=== PATIENT | male | born 1980 | race Caucasian/White ===

== ENCOUNTER 2025-01-10 04:11 | Emergency (ER) | payer OTHER, SELFPAY ==
[2025-01-10 04:15] VITALS: BP 142/90
[2025-01-10] MEDS: NSS 1000 IV (04:44)
[2025-01-10] MEDS: ZOFRAN 4 MG IV (04:48)
[2025-01-10] MEDS: TORADOL 15 MG IV (04:48)
[2025-01-10 04:52] VITALS: BP 115/83
[2025-01-10 04:53] VITALS: BMI 39.9
[2025-01-10 05:00] VITALS: BP 117/81
--- NOTE | 2025-01-10 05:13 | ED.GENMED ---
History of Present Illness
<Todd Medina Jr., PA-C - Last Filed: 01/11/25 21:08>
General
Chief Complaint: Abdominal Symptoms
Source: patient
Exam Limitations: none
Time Seen by Provider: 01/10/25 04:26
Nursing documentation reviewed up to this point in time: agreed with
History of Present Illness
History of Present Illness:
44-year-old male past medical history of hypertension GERD presenting to the emergency department today with concerns of lower abdominal discomforts and loose bowel movements as well as low-grade temperature over the past 4 days. Pain has been
progressing. Denies any blood in the stool denies any vomiting has had nausea. No significant upper respiratory symptoms.
Past History
<Todd Medina Jr., PA-C - Last Filed: 01/11/25 21:08>
Past History
ED Past Medical History: GERD and Other (Mildly hearing impaired)
ED Past Surgical History: Other (Ear surgeries)
Social History
Tobacco: Non-smoker
Alcohol: None
Drug: None
Personal: Single
Living: alone
Family History
Family History: Other (Noncontributory)
Review of Systems
<Todd Medina Jr., PA-C - Last Filed: 01/11/25 21:08>
Review of Systems
Allergies reviewed?: Yes
All Other Systems: ROS reviewed and negative except as documented in HPI and ROS
Phy Exam
<Todd Medina Jr., PA-C - Last Filed: 01/11/25 21:08>
Physical Exam
Physical Exam:
GENERAL: Alert , in no apparent distress
EYE: pupils equal and reactive
NECK: Supple, no significant adenopathy.
ENT: o/p clr, mmm.
CARDIAC: Regular rate and rhythm .
LUNGS: Clear breath sounds bilaterally, no acute respiratory distress, no wheezes/rales/rhonchi
ABDOMEN: Vague lower abdominal pain at the suprapubic region left lower quadrant and right lower quadrant no upper abdominal pain
NEUROLOGICAL: Alert and oriented, no focal neuro deficits
SKIN: Warm and dry, skin intact.
MUSCULOSKELETAL: No edema, well perfused.
PSYCH: Normal and appropriate interaction.
Course
<Todd Medina Jr., PA-C - Last Filed: 01/11/25 21:08>
Orders/Labs/Results
Orders:
Orders
01/10/25 04:23
IV Insert/Care/Rem.- Treatment PRN
Straight cath- Treatment ONCE
01/10/25 04:35
Complete Blood Count/With Diff Urgent
Comprehensive Metabolic Panel Urgent
Lipase Urgent
Manual Differential Urgent
Urinalysis Reflex To Culture Urgent
Date Specimen was Collected: 01/10/25
Time Specimen was Collected: 04:23
Urine Microscopic Reflex Cult Urgent
01/10/25 04:40
CT Abd/Pel (IV only)-DH only Urgent
Comment:
Reason For Exam: lower abd pain
0.9% Sodium Chloride 1000 ml [Nss] 1,000 ml IV BOLUS
Ketorolac [Toradol] 15 mg IV NOW STA
Ondansetron Injectable [Zofran] 4 mg IV NOW STA
01/10/25 07:27
Giardia/Cryptosporidium Ag Urgent
[facility] Source: ST
Specimen Description:
Date Specimen was Collected: 01/10/25
Time Specimen was Collected: 07:25
Comment: GCA added on by Aspen sIidro PA-C at 0735 on 01/10/2025
STOOL [C difficile Antigen & Toxins] Urgent
[facility] Source: Feces/Stool
Specimen Description:
Date Specimen was Collected: 01/10/25
Time Specimen was Collected: 07:25
Stool Culture Urgent
[facility] Source: Feces/Stool
Specimen Description:
Date Specimen was Collected: 01/10/25
Time Specimen was Collected: 07:25
Stool For WBC Urgent
[facility] Source: ST
Specimen Description:
Date Specimen was Collected: 01/10/25
Time Specimen was Collected: 07:25
Comment: ST WBC added on by Aspen Isidro PA-C at 0735 on 01/10/2025
Yersinia Culture-Stool Urgent
[facility] Source: ST
Specimen Description:
Date Specimen was Collected: 01/10/25
Time Specimen was Collected: 07:25
Comment: Yersinia Culture added on by Aspen Isidro PA-C at 0735 on 01/10/2025
01/10/25 07:35
Add On - Microbiology Urgent
Tests Added?: feces o&p crypt/giardia, fecal wbc, yersinia
01/10/25 07:46
LevoFLOXacin [Levaquin] 750 mg PO NOW STA
MetroNIDAZOLE [Flagyl] 500 mg PO NOW STA
01/10/25 08:08
Blood Culture Q30M
[facility] Source: Blood/Venous
Specimen Description:
Blood Culture Q30M
[facility] Source: Blood/Venous
Specimen Description:
Abnormal Lab Results
01/10/25
04:35
MCV 79.0 L fL
(80.0-94.0)
Band Neutrophils 21 H %
(0-3)
Lymphocytes (Manual) 17 L %
(20-51)
Sodium 132 L mmol/L
(135-145)
Carbon Dioxide 20 L mmol/L
(22-30)
BUN 21 H mg/dl
(9-20)
Glucose 128 H mg/dl
(70-99)
Total Protein 8.3 H g/dl
(6.3-8.2)
Urine Ketones 1+ A
(Negative)
Ur Occult Blood Reflex 4+ A
(Negative)
Urine RBC 3-6 A /HPF
(0-2)
Urine Bacteria (Reflex) Few A
(Negative)
Urine Albumin (Reflex) 3+ A
(Neg - Trace)
01/10/25 04:35
01/10/25 04:35
Vital Signs
Initial and Last Documented VS:
Initial Vital Signs
Temp Pulse Resp BP Pulse Ox
99.2 F 104 20 142/90 94
01/10/25 04:15 01/10/25 04:15 01/10/25 04:15 01/10/25 04:15 01/10/25 04:15
Last Documented Vital Signs
Temp Pulse Resp BP Pulse Ox
99.2 F 90 16 105/80 95
01/10/25 04:15 01/10/25 04:54 01/10/25 04:54 01/10/25 08:02 01/10/25 08:02
<Aspen Isidro PA-C - Last Filed: 01/10/25 08:31>
Orders/Labs/Results
Orders:
Orders
01/10/25 04:23
IV Insert/Care/Rem.- Treatment PRN
Straight cath- Treatment ONCE
01/10/25 04:35
Complete Blood Count/With Diff Urgent
Comprehensive Metabolic Panel Urgent
Lipase Urgent
Manual Differential Urgent
Urinalysis Reflex To Culture Urgent
Date Specimen was Collected: 01/10/25
Time Specimen was Collected: 04:23
Urine Microscopic Reflex Cult Urgent
01/10/25 04:40
CT Abd/Pel (IV only)-DH only Urgent
Comment:
Reason For Exam: lower abd pain
0.9% Sodium Chloride 1000 ml [Nss] 1,000 ml IV BOLUS
Ketorolac [Toradol] 15 mg IV NOW STA
Ondansetron Injectable [Zofran] 4 mg IV NOW STA
01/10/25 07:27
Giardia/Cryptosporidium Ag Urgent
[facility] Source: ST
Specimen Description:
Date Specimen was Collected: 01/10/25
Time Specimen was Collected: 07:25
Comment: GCA added on by Aspen Isidro PA-C at 07 on 01/10/2025
STOOL [C difficile Antigen & Toxins] Urgent
[facility] Source: Feces/Stool
Specimen Description:
Date Specimen was Collected: 01/10/25
Time Specimen was Collected: 07:25
Stool Culture Urgent
[facility] Source: Feces/Stool
Specimen Description:
Date Specimen was Collected: 01/10/25
Time Specimen was Collected: 07:25
Stool For WBC Urgent
[facility] Source: ST
Specimen Description:
Date Specimen was Collected: 01/10/25
Time Specimen was Collected: 07:25
Comment: ST WBC added on by Aspen Isidro PA-C at 07 on 01/10/2025
Yersinia Culture-Stool Urgent
[facility] Source: ST
Specimen Description:
Date Specimen was Collected: 01/10/25
Time Specimen was Collected: 07:25
Comment: Yersinia Culture added on by Aspen Isidro PA-C at [facility] on 01/10/2025
01/10/25 07:35
Add On - Microbiology Urgent
Tests Added?: feces o&p crypt/giardia, fecal wbc, yersinia
01/10/25 07:46
LevoFLOXacin [Levaquin] 750 mg PO NOW STA
MetroNIDAZOLE [Flagyl] 500 mg PO NOW STA
01/10/25 08:08
Blood Culture Q30M
[facility] Source: Blood/Venous
Specimen Description:
Blood Culture Q30M
[facility] Source: Blood/Venous
Specimen Description:
Abnormal Lab Results
01/10/25
04:35
MCV 79.0 L fL
(80.0-94.0)
Band Neutrophils 21 H %
(0-3)
Lymphocytes (Manual) 17 L %
(20-51)
Sodium 132 L mmol/L
(135-145)
Carbon Dioxide 20 L mmol/L
(22-30)
BUN 21 H mg/dl
(9-20)
Glucose 128 H mg/dl
(70-99)
Total Protein 8.3 H g/dl
(6.3-8.2)
Urine Ketones 1+ A
(Negative)
Ur Occult Blood Reflex 4+ A
(Negative)
Urine RBC 3-6 A /HPF
(0-2)
Urine Bacteria (Reflex) Few A
(Negative)
Urine Albumin (Reflex) 3+ A
(Neg - Trace)
01/10/25 04:35
01/10/25 04:35
Vital Signs
Initial and Last Documented VS:
Initial Vital Signs
Temp Pulse Resp BP Pulse Ox
99.2 F 104 20 142/90 94
01/10/25 04:15 01/10/25 04:15 01/10/25 04:15 01/10/25 04:15 01/10/25 04:15
Last Documented Vital Signs
Temp Pulse Resp BP Pulse Ox
99.2 F 90 16 105/80 95
01/10/25 04:15 01/10/25 04:54 01/10/25 04:54 01/10/25 08:02 01/10/25 08:02
<Dann Peralta MD - Last Filed: 01/10/25 10:17>
Orders/Labs/Results
Orders:
Orders
01/10/25 04:23
IV Insert/Care/Rem.- Treatment PRN
Straight cath- Treatment ONCE
01/10/25 04:35
Complete Blood Count/With Diff Urgent
Comprehensive Metabolic Panel Urgent
Lipase Urgent
Manual Differential Urgent
Urinalysis Reflex To Culture Urgent
Date Specimen was Collected: 01/10/25
Time Specimen was Collected: 04:23
Urine Microscopic Reflex Cult Urgent
01/10/25 04:40
CT Abd/Pel (IV only)-DH only Urgent
Comment:
Reason For Exam: lower abd pain
0.9% Sodium Chloride 1000 ml [Nss] 1,000 ml IV BOLUS
Ketorolac [Toradol] 15 mg IV NOW STA
Ondansetron Injectable [Zofran] 4 mg IV NOW STA
01/10/25 07:27
Giardia/Cryptosporidium Ag Urgent
[facility] Source: ST
Specimen Description:
Date Specimen was Collected: 01/10/25
Time Specimen was Collected: 07:25
Comment: GCA added on by Aspen Isidro PA-C at 0735 on 01/10/2025
STOOL [C difficile Antigen & Toxins] Urgent
[facility] Source: Feces/Stool
Specimen Description:
Date Specimen was Collected: 01/10/25
Time Specimen was Collected: 07:25
Stool Culture Urgent
[facility] Source: Feces/Stool
Specimen Description:
Date Specimen was Collected: 01/10/25
Time Specimen was Collected: 07:25
Stool For WBC Urgent
[facility] Source: ST
Specimen Description:
Date Specimen was Collected: 01/10/25
Time Specimen was Collected: 07:25
Comment: ST WBC added on by Aspen Isidro PA-C at 0735 on 01/10/2025
Yersinia Culture-Stool Urgent
[facility] Source: ST
Specimen Description:
Date Specimen was Collected: 01/10/25
Time Specimen was Collected: 07:25
Comment: Yersinia Culture added on by Aspen Isidro PA-C at 0735 on 01/10/2025
01/10/25 07:35
Add On - Microbiology Urgent
Tests Added?: feces o&p crypt/giardia, fecal wbc, yersinia
01/10/25 07:46
LevoFLOXacin [Levaquin] 750 mg PO NOW STA
MetroNIDAZOLE [Flagyl] 500 mg PO NOW STA
01/10/25 08:08
Blood Culture Q30M
[facility] Source: Blood/Venous
Specimen Description:
Blood Culture Q30M
[facility] Source: Blood/Venous
Specimen Description:
Abnormal Lab Results
01/10/25
04:35
MCV 79.0 L fL
(80.0-94.0)
Band Neutrophils 21 H %
(0-3)
Lymphocytes (Manual) 17 L %
(20-51)
Sodium 132 L mmol/L
(135-145)
Carbon Dioxide 20 L mmol/L
(22-30)
BUN 21 H mg/dl
(9-20)
Glucose 128 H mg/dl
(70-99)
Total Protein 8.3 H g/dl
(6.3-8.2)
Urine Ketones 1+ A
(Negative)
Ur Occult Blood Reflex 4+ A
(Negative)
Urine RBC 3-6 A /HPF
(0-2)
Urine Bacteria (Reflex) Few A
(Negative)
Urine Albumin (Reflex) 3+ A
(Neg - Trace)
01/10/25 04:35
01/10/25 04:35
Vital Signs
Initial and Last Documented VS:
Initial Vital Signs
Temp Pulse Resp BP Pulse Ox
99.2 F 104 20 142/90 94
01/10/25 04:15 01/10/25 04:15 01/10/25 04:15 01/10/25 04:15 01/10/25 04:15
Last Documented Vital Signs
Temp Pulse Resp BP Pulse Ox
99.2 F 90 16 105/80 95
01/10/25 04:15 01/10/25 04:54 01/10/25 04:54 01/10/25 08:02 01/10/25 08:02
<Todd Medina Jr., PA-C - Last Filed: 01/11/25 21:08>
MDM/Problems Addressed
MDM/Problems Addressed:
44-year-old male presenting to the emergency department today with concerns of lower abdominal pain ongoing over the past 4 days intermittent episodes of loose bowel movements. Had a low-grade temperature. Progressing over the past 4 days.
Reproducible on exam. CT scan ordered for further assessment.
<Todd Medina Jr., PA-C - Last Filed: 01/11/25 21:08>
*Pulse Oximetry
SaO2: 96
Oxygen Mode of Delivery: Room air
<Aspen Isidro PA-C - Last Filed: 01/10/25 08:31>
*Pulse Oximetry
Patient hypoxic: no (95)
*Critical Care Note
Total Time (30-74mins, 75-104mins- exclusive of procedures): Not Applicable
<Aspen Isidro PA-C - Last Filed: 01/10/25 08:31>
Update Note
Update Note:
Received patient in signout pending CT scan. He apparently is a pretty healthy 44-year-old who developed low-grade temperatures and loose diarrhea over the last 3 days01/10/2025 0646 AM
With right lower quadrant pain. His white count was normal however he has a bandemia of 21%, he was afebrile here however he did have a CT showing severe ileocolitis with mesenteric lymphadenopathy. The differential is acute infectious causes
versus Crohn's disease.
Patient feels pretty well, his pain is controlled with Toradol and he is afebrile 98.6 on my temperature recheck. He is having 8-10 episodes of diarrhea a day but is able to eat and drink. His electrolytes do not look overly concerning.
Patient was seen by ED attending as well as I discussed the case with Dr. Negrete the on-call GI doctor. Given his level of pain that is controlled, able to tolerate liquids and eat as he is hungry, level of hydration she felt it was reasonable to
definitely send stool studies including Giardia, Yersinia, fecal WBCs etc. which were added onto the stool that was already sent. And she felt like he could trial outpatient antibiotics, did request blood cultures be drawn. Levaquin daily and
Flagyl 3 times daily, first dose given here. Patient was again offered observation admission for fluids and pain control however he would prefer to go home. He happens to have a GI follow-up with his outpatient GI in 10 days for his GERD which was
routinely scheduled. I gave him a copy of his CAT scan so he could have this seen by them and did recommend that he consider colonoscopy if symptoms persist
ED Attending Note
<Todd Medina Jr., PA-C - Last Filed: 01/11/25 21:08>
-
Portions of this chart may have been created with voice recognition software.� Occasional wrong word or��sound alike� substitutions may have occurred due to the inherent limitations of voice recognition software.
<Dann Peralta MD - Last Filed: 01/10/25 10:17>
ED Attending Note
Patient seen and examined by attending physician: Yes
ED Attending Note:
Patient presents to ED secondary to persistent lower abdominal cramping sensation, along with multiple episodes of nonbloody diarrhea over the past 4 days. Patient reports fever and chills sensation intermittently since onset of symptoms. Patient
states that his symptoms started approxi-2 hours after having had [employer] hamb[employer]. Denies vomiting or loss of appetite. Patient has had meals over the past 2 days, which did not worsen or improve his symptoms. Denies previous history of
similar symptoms. Denies recent travel. Denies recent change in diet. Denies family history of Crohn's/ulcerative colitis.
Physical Exam
General: no apparent distress, not acutely ill. afebrile
Head: nc/at. eomi
Neck: supple. no meningeal signs.
Heart: s1/s2 regular rate and rhythm
Lungs: no acute respiratory distress. clear bilaterally
Abdomen: normal bowel sounds. not tender.
Neuro: alert and oriented x 3. no focal neurological deficits
Skin: no rash
Psychiatric: well kept. interactive and cooperative
Extremities: no edema. no calf tenderness.
Blood work and CT report reviewed and discussed with patient, as well as on-call GI physician, Dr. Negrete. Decision made to discharge patient home with course of antibiotics along with dietary changes. Return precautions provided, i.e.
fever/worsening pain/vomiting. Patient expresses understanding at time of discharge. Patient already has an appointment with his GI physician. As such, patient given copy of CT report as well as CT on a disk, to be reviewed by his GI physician.
Patient otherwise is afebrile, hemodynamically stable, and appears comfortable, at time of discharge.
Discharge Plan
Departure
Patient Disposition: Home (Routine Discharge)
Date of Disposition: 01/10/25
Time of Disposition: 08:17
Patient with high blood pressure during this ER visit?: Yes
Condition: Fair
Covid-19: Not Applicable
Discharge Problem:
Colitis
Instructions: Colitis (DC), Low-fiber diet
Prescriptions:
New
levofloxacin 750 mg tablet
750 mg PO DAILY Qty: 6 0RF
metronidazole 500 mg tablet
500 mg PO Q8H 7 Days Qty: 20 0RF
No Action
ofloxacin 1 DROP drops
3 drp otic (ear) TID
cefuroxime axetil 500 MG tablet
500 mg PO BID
Referrals:
Al Mathew DO [Family Provider]
Kay Negrete MD [Active, Gastroenterology] - Follow up in 5-7 days
Stand Alone Forms: Return to Work
Activity Restrictions/Additional Instructions:
Your symptoms are likely due to an infectious cause like a diarrhea that has caused inflammation of your colon. You should watch your symptoms very closely. We are trialing outpatient antibiotics with Levaquin once a day starting tomorrow and
Flagyl 3 times a day, you can take 2 doses today since we gave you the first this morning.
You should have a low threshold to return to the emergency department specifically for persistent fevers outside of 48 hours from the start of antibiotics, worsening pain, and intolerance to oral liquids or eating, bloody diarrhea, large-volume
diarrhea where you are very dehydrated, worsening fatigue, shaking chills etc.
Otherwise we will call you in 48 hours if we need to switch your antibiotics
You need to follow-up with your GI doctor, take the Copy of the CAT scan report with you.
You may need a colonoscopy if the symptoms do not resolve. They went to formal testing to rule out inflammatory bowel disease.
Have a low residue diet, stay hydrated and return as needed
Please note that Levaquin is an antibiotic that can cause tendinopathy, you should avoid exercise, specifically running or lifting weights while on this medication
Interventions
Interventions:
*Risk Screen - Suicide Last Done: 01/10/25 04:15
*General Assessment Last Done: 01/10/25 04:15
*Neglect/Abuse Screening Last Done: 01/10/25 04:15
*ED- Fall Risk Assessment Last Done: 01/10/25 04:15
*ED COVID-19 Vaccine History Last Done: 01/10/25 04:15
*Nursing Disposition Last Done: 01/10/25 08:32
DK-Rdlvgg-Zuddrqbpty Assessment Last Done: 01/10/25 04:55
Discharge Date and Time
Discharge Date/Time: 01/10/25 08:33
Print Language: ARMENIAN
[2025-01-10 05:18] LABS: Hematocrit 46.7 % (39.0-52.0); Hemoglobin 16.3 g/dL (13.0-18.0); Mean Corp Hgb Conc. 34.9 g/dL (33.0-37.0); Mean Corpuscular Volume 79.0 fL (80.0-94.0); Platelet Count 141 10^3/uL (130-400); Red Cell Dist. Width 13.1 % (11.5-14.5)
[2025-01-10 05:20] LABS: Urine Character Clear (Clear)
[2025-01-10 05:30] LABS: ALT (SGPT) 49 U/L (0-50); AST (SGOT) 56 U/L (17-59); Albumin 4.5 g/dl (3.5-5.0); Alkaline Phosphatase 72 U/L (38-126); Blood Urea Nitrogen 21 mg/dl (9-20); Calcium 9.0 mg/dl (8.4-10.2); Carbon Dioxide 20 mmol/L (22-30); Chloride 100 mmol/L (98-107); Estimated Creatinine Clearance 93 ml/min; Glucose 128 mg/dl (70-99); Lipase 224 U/L (23-300); Potassium 3.6 mmol/L (3.5-5.1); Sodium 132 mmol/L (135-145); Total Protein 8.3 g/dl (6.3-8.2); eGFR > 60.00
[2025-01-10 05:48] LABS: Urine White Cell None Seen /HPF (0-5)
[2025-01-10 06:17] LABS: Absolute Neutrophils -Man Diff 4.2 10^3/uL (1.4-6.5); Platelets Checked Yes
[2025-01-10 06:18] LABS: Normal RBC Morphology Yes; Total Cells Counted 100
[2025-01-10 07:10] VITALS: BP 109/70
[2025-01-10] MEDS: LEVAQUIN 750 MG PO (07:54)
[2025-01-10] MEDS: FLAGYL 500 MG PO (07:54)
[2025-01-10 08:02] VITALS: BP 105/80
== END 2025-01-10 08:33 | disposition home or self-care (01) ==
LOC: EMR 04:11
PROVIDERS: Student in an Organized Health Care Education/Training Program; EMERGENCY PHYSICIAN Emergency Medicine; FAMILY PHYSICIAN Family Medicine
DX: K52.9 Noninfective gastroenteritis and colitis, unspecified (principal); I10 Essential (primary) hypertension
CPT/HCPCS: 96374; 96375; 96361; 99284; 74177; 80053; 81003; 81015; 83690; 85025; 87040; 87045; 87046; 87077; 87186; 87324; 87328; 87329; 87427; 87449; 89055; Q9967